=== PATIENT | female | born 1990 | race Caucasian/White ===

== ENCOUNTER 2022-05-11 07:55 | Inpatient (IN) ==
[2022-05-11 08:38] LABS: Amorphous Crystals,Urine Few /HPF (Few); RBC,Urine 2 /HPF (0-4); Squamous Epithelial Cell,Urine Many /HPF (0-10)
[2022-05-11 08:39] LABS: Bilirubin,Urine Negative (Negative); Blood, Urine Negative (Negative); Glucose,Urine (UA) Negative (Negative); Ketones,Urine Negative (Negative); Nitrite,Urine Negative (Negative); Protein,Urine Negative (Negative); Urine Appearance Clear (Clear); Urine Color Yellow (Yellow); Urine Urobilinogen 0.2 eU/dL (<2.0)
[2022-05-11 08:52] LABS: Barbiturates Screen,Urine Negative (Negative); Benzodiazepines Screen,Urine Negative (Negative); Cannabinoid Screen,Urine Negative (Negative); Opiate Screen,Urine Negative (Negative); Phencyclidine Screen,Urine Negative (Negative)
[2022-05-11 08:58] LABS: Basophils # 0.1 10*3/uL (0.0-0.2); Basophils % 0.6 % (0.0-0.8); Eosinophils # 0.2 10*3/uL (0.0-0.87); Eosinophils % 1.5 % (0.00-10.9); Hematocrit 35.2 VOL% (35.7-47.0); Hemoglobin 11.6 GM/DL (12.0-16.0); Immature Granulocytes % 1.7 %; Immature Granulocytes Absolute 0.24 #; Lymphocytes # 3.9 10*3/uL (1.4-4.0); Lymphocytes % 27.4 % (21.3-54.2); Monocytes % 6.7 % (1.7-12.7); Neutrophils % 62.1 % (38.7-73.9); Platelet Count 256 T/CUMM (130-400); Red Blood Count 3.91 MC/CUMM (3.8-5.5); Red Cell Distribution Width 14.5 % (9.3-17.3); White Blood Count 14.38 T/CUMM (4-12)
[2022-05-11] MEDS ORDERED: OXYTOCIN/LR 20 UNIT/1,000 ML BAG IV ONE ×2 (08:58→19:54)
[2022-05-11] MEDS ORDERED: miSOPROStoL 200 MCG TABLET RECTAL PRN (08:58)
[2022-05-11] MEDS ORDERED: TRANEXAMIC ACID 1,000 MG in SODIUM CHLORIDE 0.9% 100 ML IV PRN (08:58)
[2022-05-11] MEDS ORDERED: ONDANSETRON 4 MG/2 ML VIAL IV PRN ×2 (08:58→19:54)
[2022-05-11] MEDS ORDERED: CARBOPROST TROMETHAMINE 250 MCG/ML AMP IM PRN (08:58)
[2022-05-11] MEDS ORDERED: METHYLERGONOVINE 0.2 MG/1 ML AMP IM PRN (08:58)
[2022-05-11] MEDS ORDERED: LACTATED RINGERS 1,000 ML IV SCH (09:00)
[2022-05-11 09:12] LABS: INR 0.9; PT Patient Result 9.9 SECS (10.1-12.1); Partial Thromboplastin Time 24.1 SECS (23.7-32.9)
[2022-05-11 09:18] LABS: Alanine Aminotransferase 44 U/L (13-56); Albumin 2.5 G/DL (3.4-5.0); Alkaline Phosphatase 179 U/L (45-117); Aspartate Amino Transferase 48 U/L (0-37); Bilirubin,Total < 0.39 MG/DL (0.20-1.00); Blood Urea Nitrogen 7 MG/DL (7-18); Calcium 10.1 MG/DL (8.5-10.1); Carbon Dioxide 21 MMOL/L (21-32); Chloride 107 MMOL/L (98-107); Glucose 84 MG/DL (74-106); Potassium 4.2 MMOL/L (3.5-5.1); Sodium 136 MMOL/L (136-145); Total Protein 6.8 G/DL (6.4-8.2); Uric Acid 3.8 MG/DL (2.6-6.0)
[2022-05-11] MEDS ORDERED: OXYTOCIN/LR 20 UNIT/1,000 ML BAG IV SCH (09:30)
[2022-05-11] MEDS ORDERED: PENICILLIN G POTASSIUM INJ 5,000,000 UNIT in SODIUM CHLORIDE 0.9% 100 ML IV ONE (10:00)
[2022-05-11 10:18] LABS: Protein/Creatinine Ratio,Urine 0.6 RATIO
[2022-05-11] MEDS ORDERED: diphenhydrAMINE 50 MG/1 ML VIAL IV PRN ×2 (11:14)
[2022-05-11] MEDS ORDERED: CITRIC ACID/SODIUM CITRATE 30 ML UDCUP PO ONE (11:14)
[2022-05-11] MEDS ORDERED: NALOXONE 0.4 MG/ML VIAL IV PRN (11:14)
[2022-05-11] MEDS ORDERED: ePHEDrine 50 MG/ML VIAL IV PRN (11:14)
[2022-05-11] MEDS ORDERED: FAMOTIDINE 20 MG/2 ML VIAL IV ONE (11:14)
[2022-05-11] MEDS ORDERED: fentaNYL 2 MCG/ROPIV 0.2% EPID 100 ML EPIDURAL SCH (11:30)
[2022-05-11] MEDS ORDERED: PENICILLIN G POTASSIUM INJ 3,000,000 UNIT in SODIUM CHLORIDE 0.9% 100 ML IV SCH (14:00)
[2022-05-11] MEDS ORDERED: ACETAMINOPHEN 500 MG TABLET PO PRN (14:18)
[2022-05-11] MEDS ORDERED: SODIUM CHLORIDE 0.9% 0 ML IV ONE (16:17)
[2022-05-11] MEDS ORDERED: TRANEXAMIC ACID 1,000 MG/10 ML VIAL ONE (16:17)
[2022-05-11] MEDS ORDERED: CARBOPROST TROMETHAMINE 250 MCG/ML AMP IM ONE (16:17)
[2022-05-11] MEDS ORDERED: miSOPROStoL 200 MCG TABLET ONE (16:17)
[2022-05-11 16:36] LABS: Cord Arterial Blood HCO3 21.4 MMOL/L
[2022-05-11 16:39] LABS: Cord Venous Blood HCO3 22.5 MMOL/L; Cord Venous Blood PCO2 42.3 MMHG; Cord Venous Blood PO2 29.7
[2022-05-11 17:00] LABS: Mucus,Urine Occasional /LPF (Occasional); Squamous Epithelial Cell,Urine Occasional /HPF (0-10)
[2022-05-11 17:01] LABS: Bilirubin,Urine Negative (Negative); Blood, Urine Negative (Negative); Glucose,Urine (UA) Negative (Negative); Ketones,Urine Negative (Negative); Nitrite,Urine Negative (Negative); Protein,Urine Negative (Negative); Urine Appearance Clear (Clear); Urine Color Yellow (Yellow); Urine Urobilinogen 0.2 eU/dL (<2.0)
[2022-05-11 17:14] LABS: Barbiturates Screen,Urine Negative (Negative); Benzodiazepines Screen,Urine Negative (Negative); Cannabinoid Screen,Urine Negative (Negative); Opiate Screen,Urine Negative (Negative); Phencyclidine Screen,Urine Negative (Negative)
[2022-05-11] MEDS ORDERED: BISACODYL 10 MG SUPP RECTAL PRN (19:54)
[2022-05-11] MEDS ORDERED: WITCH HAZEL PADS 100/JAR TOP PRN (19:54)
[2022-05-11] MEDS ORDERED: oxyCODONE/ACETAMINOPHEN 5-325 MG TABLET PO PRN (19:54)
[2022-05-11] MEDS ORDERED: DIPH/TET/ACEL PERT BOOSTER VACCINE 0.5 ML VIAL IM ONE (19:54)
[2022-05-11] MEDS ORDERED: ACETAMINOPHEN 325 MG TABLET PO PRN (19:54)
[2022-05-11] MEDS ORDERED: BENZOCAINE 20%/MENTHOL 0.5% SPRAY 56 GM CAN TOP PRN (19:54)
[2022-05-11] MEDS ORDERED: HYDROCORTISONE 2.5% RECTAL CREAM 30 GM TUBE TOP PRN (19:54)
[2022-05-11] MEDS ORDERED: LANOLIN 50% CREAM 0.3 OZ TUBE TOP PRN (19:54)
[2022-05-11] MEDS ORDERED: MEASLES/MUMPS/RUBELLA VACCINE 0.5 ML VIAL SUBCUT ONE (19:54)
[2022-05-11] MEDS ORDERED: RHO(D) IMMUNE GLOBULIN 300 MCG SYRINGE IM ONE (19:54)
[2022-05-11] MEDS: DOCUSATE SODIUM 100 MG CAPSULE PO SCH (21:28)
[2022-05-11] MEDS: IBUPROFEN 800 MG TABLET PO PRN (21:35)
[2022-05-11] MEDS: oxyCODONE/ACETAMINOPHEN 5-325 MG TABLET PO PRN (22:56)
[2022-05-12] MEDS: IBUPROFEN 800 MG TABLET PO PRN ×2 (03:03→12:42)
[2022-05-12 05:47] LABS: Basophils # 0.1 10*3/uL (0.0-0.2); Basophils % 0.3 % (0.0-0.8); Eosinophils # 0.2 10*3/uL (0.0-0.87); Eosinophils % 0.9 % (0.00-10.9); Hematocrit 34.7 VOL% (35.7-47.0); Hemoglobin 11.6 GM/DL (12.0-16.0); Immature Granulocytes % 1.3 %; Immature Granulocytes Absolute 0.24 #; Lymphocytes # 3.7 10*3/uL (1.4-4.0); Lymphocytes % 19.9 % (21.3-54.2); Mean Corpuscular HGB Conc 33.4 GM/DL (32-36); Mean Corpuscular Volume 89.2 FL (87-102); Mean Platelet Volume 11.3 FL (9.6-12.0); Monocytes # 1.2 10*3/uL (0.11-0.8); Monocytes % 6.5 % (1.7-12.7); Neutrophils % 71.1 % (38.7-73.9); Platelet Count 228 T/CUMM (130-400); Red Blood Count 3.89 MC/CUMM (3.8-5.5); Red Cell Distribution Width 14.2 % (9.3-17.3); White Blood Count 18.35 T/CUMM (4-12)
[2022-05-12] MEDS: MULTIVITAMIN (PRENATAL) TABLET PO SCH (10:05)
[2022-05-12] MEDS: DOCUSATE SODIUM 100 MG CAPSULE PO SCH ×2 (10:05→20:34)
[2022-05-12] MEDS ORDERED: ceFAZolin 2,000 MG/50 ML DUPLEX IV SCH (11:30)
[2022-05-12] MEDS: oxyCODONE/ACETAMINOPHEN 5-325 MG TABLET PO PRN (12:41)
[2022-05-12] MEDS: LABETALOL 100 MG TABLET PO SCH ×2 (15:30→23:30)
[2022-05-12] MEDS: AMOXICILLIN/CLAV 875 MG TABLET PO SCH ×2 (16:01→23:30)
[2022-05-13 05:41] LABS: Basophils # 0.1 10*3/uL (0.0-0.2); Basophils % 0.4 % (0.0-0.8); Eosinophils # 0.2 10*3/uL (0.0-0.87); Eosinophils % 1.4 % (0.00-10.9); Hematocrit 33.2 VOL% (35.7-47.0); Hemoglobin 10.9 GM/DL (12.0-16.0); Immature Granulocytes % 1.6 %; Immature Granulocytes Absolute 0.23 #; Lymphocytes # 3.2 10*3/uL (1.4-4.0); Lymphocytes % 22.6 % (21.3-54.2); Mean Corpuscular HGB Conc 32.8 GM/DL (32-36); Mean Corpuscular Volume 90.7 FL (87-102); Mean Platelet Volume 11.2 FL (9.6-12.0); Monocytes # 0.8 10*3/uL (0.11-0.8); Monocytes % 5.7 % (1.7-12.7); Neutrophils % 68.3 % (38.7-73.9); Platelet Count 225 T/CUMM (130-400); Red Blood Count 3.66 MC/CUMM (3.8-5.5); Red Cell Distribution Width 14.2 % (9.3-17.3); White Blood Count 14.01 T/CUMM (4-12)
[2022-05-13 08:06] VITALS: BP 141/93
[2022-05-13] MEDS ORDERED: INFLUENZA VIRUS VACCINE 0.5 ML SYRINGE IM ONE (09:00)
[2022-05-13] MEDS: MULTIVITAMIN (PRENATAL) TABLET PO SCH (09:13)
[2022-05-13] MEDS: AMOXICILLIN/CLAV 875 MG TABLET PO SCH (09:13)
[2022-05-13] MEDS: LABETALOL 100 MG TABLET PO SCH (09:13)
[2022-05-13] MEDS: DOCUSATE SODIUM 100 MG CAPSULE PO SCH (09:14)
[2022-05-13 11:04] LABS: Barbiturates Screen,Urine Negative (Negative); Benzodiazepines Screen,Urine Negative (Negative); Cannabinoid Screen,Urine Negative (Negative); Opiate Screen,Urine Negative (Negative); Phencyclidine Screen,Urine Negative (Negative)
== END 2022-05-13 12:30 | disposition home or self-care (01) | DRG 560 ==
LOC: N.LDOUT 07:55 → N.LD 07:58 → N.OB 18:35
PROVIDERS: ADMIT Obstetrics & Gynecology; ATTEND Obstetrics & Gynecology